=== PATIENT | female | born 1995 | race Two or more races ===

== ENCOUNTER 2017-05-11 19:10 | Emergency (ER) | payer OTHER ==
[~2017-05-11] VITALS: Ht 157.5 cm; Wt 49.9 kg
[~2017-05-11 19:10] MED LIST: LEVSIN/SL0.125 MG PO; PROTONIX40 MG PO
== END 2017-05-12 00:25 | disposition home or self-care (01) ==
LOC: ER 19:10
DX: J06.9 Acute upper respiratory infection, unspecified (principal)

== ENCOUNTER 2020-07-21 14:52 | Emergency (ER) | payer OTHER ==
[~2020-07-21] VITALS: Ht 160 cm; Wt 54.9 kg
[2020-07-21] MEDS ORDERED: ONDANSETRON HCL4 MG PO (21:33)
[2020-07-21] MEDS ORDERED: INTESTINEX680 M1 PO (21:33)
== END 2020-07-21 21:41 | disposition home or self-care (01) ==
LOC: ER 14:52
DX: R11.10 Vomiting, unspecified (principal); R19.7 Diarrhea, unspecified; R10.13 Epigastric pain; K52.89 Other specified noninfective gastroenteritis and colitis
CPT/HCPCS: 74177; Q9965

== ENCOUNTER 2021-10-19 19:22 | Emergency (ER) | payer OTHER ==
[~2021-10-19] VITALS: Ht 160 cm; Wt 59.0 kg
[~2021-10-19 19:22] MED LIST changes: +INTESTINEX680 M1 PO; +ONDANSETRON HCL4 MG PO
== END 2021-10-19 22:44 | disposition home or self-care (01) ==
LOC: ER 19:22
DX: R10.11 Right upper quadrant pain (principal)